=== PATIENT | female | born 1975 | race Two or more races ===

== ENCOUNTER 2018-08-05 05:31 | Day surgery (SDC) | payer OTHER ==
--- NOTE | 2018-08-04 00:17 | PREOPHP ---
DATE OF ADMISSION: 09/05/2018 HISTORY OF PRESENT ILLNESS: This is a 42-year-old female, 3, para 3. This patient was refer red to me in 02/2018 due to irregular periods, pelvic pain, and heavy periods with clots. This patie nt had a previous history of right salpingo-oophorectomy and left tubal coagulation of the tubes for tubal ligation. She has been having dyspareunia, dysmenorrhea as well, and she was diagnosed with th e possibility of a fibroid uterus. The patient was given treatment with antibiotics as well and Depo shot. The Depo shot has given her about 50% relief and she has still been having periods that are h eavy with clots and with hemorrhages that led her to anemia. She cannot tolerate oral contraceptives . She has used an IUD that was used in the past with no help. The uterus felt with early fibroid co nsistency and very painful mobilization and, for these reasons, she was given the possibility of PID. She was given treatment with antibiotics of Cipro and Flagyl. She did not get better and she has b een diagnosed with intractable pelvic pain, early fibroid uterus, intractable bleeding, previous righ t salpingo-oophorectomy PID versus endometriosis. At this time, she has been offered a pelviscopic a pproach to determine the etiology of her pain, if it is related to PID, adhesions, fibroids or endome triosis or both. She is advised for a laparoscopic procedure, possible lysis of adhesions. PAST MEDICAL HISTORY: Right salpingo-oophorectomy due to an ectopic and she had a pelvisco py with left tubal fulguration. REVIEW OF SYSTEMS: Negative for cardiovascular disease, negative for lung disease, GI disease, endoc rine disease and no medical antecedents. ALLERGIES: SHE HAS NO ALLERGIES. SOCIAL HISTORY: No history of drugs or alcohol. FAMILY HISTORY: Noncontributory. MEDICATIONS: She is not taking any medicine at this moment except for ibuprofen. PHYSICAL EXAMINATION: VITAL SIGNS: The patient is 4 feet 11 inches. She weighs 153 pounds. Blood pressure is 117/83, pul se is 80, respirations 16. HEAD AND NECK: Normal. CHEST: Clear. HEART: Normal sinus rhythm. LUNGS: Clear. BREASTS: Soft, nontender, no masses. ABDOMEN: Soft, nontender, no masses. PELVIC: With normal external genitalia. Normal vagina. Uterus retroverted, flexed, very painful on mobilization to both sides, mainly on the left and no masses were palpated. RECTAL: Normal. EXTREMITIES: Normal. DIAGNOSES: 1. Intractable pelvic pain and bleeding. 2. History of right salpingo-oophorectomy. 3. Pelvic inflammatory disease. 4. Endometriosis versus fibroid uterus. PLAN: She is undergoing a pelviscopy, possible lysis of adhesions to determine the diagnosis and to follow with treatment. She has been advised of the possible risks and possible complications of the procedure with her alternatives and options. Written information was provided. She had no more ques tions and agreed to go ahead with the procedure with full understanding and no more questions. Dictated By: SANJAY MELO/BRANDON Conf#: [id number] DID#: [id number]
[2018-08-05] VITALS (13 sets, daily range): BP systolic 102–134; BP diastolic 54–84; PULSE 66–110; RESP 11–38; Ht 149.9 cm; Wt 68.8 kg
[~2018-08-05] VITALS: Ht 149.9 cm; Wt 68.8 kg
[2018-08-05] MEDS ORDERED: BUPIVACAINE 0.5%/EPI (SDV) 30 ML INJ ONE (06:56)
[2018-08-05] MEDS ORDERED: DESFLURANE 15 MIN ONE (07:00)
[2018-08-05] MEDS ORDERED: CEFAZOLIN 2 GM/50 ML (PMX) 50 ML IVPB SCH (07:00)
--- NOTE | 2018-08-05 07:18 | PREAC ---
Date/Time of Note Date/Time of Note DATE: 08/05/18 TIME: 07:16 Anesthesia Eval and Record Evaluation Time Pre-Procedure Interview DATE: 08/05/18 TIME: 07:16 Age 42 Sex female NPO: 8 hrs Preoperative diagnosis PELVIC PAIN Planned procedure PELVIOSCOPY, LYSIS OF ADHESIONS Past Medical History Past Medical History: None Surgery & Anesthesia Issues No known issue (BTL) Meds Anticoagulation: No Beta Reid within 24 hr: No Reason Beta Reid not given: Pt. not on B-Reid No Active Prescriptions or Reported Meds Current Medications Cefazolin Sodium/ Dextrose 50 ml @ 100 mls/hr PRE-OP IVPB ; Start 08/05/18 at 07:00; Stop 08/05/18 at 12:00 Meds reviewed: Yes Allergies Coded Allergies: No Known Allergy (Unverified , 08/05/18) Allergies Reviewed: Yes Labs/Studies Labs Reviewed: Reviewed by anesthesiologist test: Negative Studies: ECG (NL), CXR (NAPD) Pre-procedure Exam Last vitals Vital Signs Date Temp Pulse Resp B/P (MAP) Pulse Ox O2 O2 Flow FiO2 Time Delivery Rate 08/05/18 97.2 78 18 113/68 98 Room Air 05:55 (83) Airway: Adequate mouth opening, Adequate thyromental dist Mallampati: Mallampati II Teeth: Normal Lung: Normal Heart: Normal ASA Physical Status ASA physical status: 1 Emergency: None Planned Anesthetic General/MAC: ETT Nerve block: TAP (bilateral) Planned Pain Management Single shot nerve block, Parenteral pain med Pre-operative Attestations Prior to commencing anesthesia and surgery, the patient was re-evaluated, there was verification of: *The patient's identity *The results of appropriate recent lab work and preoperative vital signs *The above evaluation not changing prior to induction *Anesthetic plan, risk benefits, alternative and complications discussed with patient/family; questions answered; patient/family understands, accepts and wishes to proceed. Zi Garay M.D. Aug 05, 2018 07:18
[2018-08-05] MEDS ORDERED: TRIMETHOBENZAMIDE 100 MG/ML VIAL IM PRN (07:30)
[2018-08-05] MEDS ORDERED: OXYCODONE/ACETAMINOPHEN (5/325) TAB PO PRN ×2 (07:30)
[2018-08-05] MEDS ORDERED: LABETALOL HCL 20MG INJ IV PRN (07:30)
[2018-08-05] MEDS ORDERED: ONDANSETRON 4 MG INJ IV PRN (07:30)
[2018-08-05] MEDS ORDERED: DIPHENHYDRAMINE 50 MG INJ IV PRN (07:30)
[2018-08-05] MEDS ORDERED: MEPERIDINE 25 MG INJ IV PRN (07:30)
[2018-08-05] MEDS ORDERED: hydrALAzine 20 MG INJ IV PRN (07:30)
[2018-08-05] MEDS ORDERED: FENTAnyl 50 MCG/ML VIAL IV PRN ×3 (07:30)
[2018-08-05] MEDS ORDERED: MIDAZOLAM 1 MG/ML 2 ML INJ IV PRN (07:30)
[2018-08-05] MEDS ORDERED: ALBUTEROL 0.083% (NEB) 2.5 MG/3 ML AMP HHN PRN (07:30)
[2018-08-05] MEDS ORDERED: EPHEDrine SULFATE 50 MG/5 ML SYG IV PRN (07:30)
[2018-08-05] MEDS ORDERED: HYDROmorphONE 1 MG/5 ML IV SYRINGE IV PRN ×2 (07:30)
[2018-08-05] MEDS ORDERED: IPRATROPIUM (NEB) 0.5 MG/2.5 ML AMP HHN PRN (07:30)
[2018-08-05] MEDS ORDERED: NEOSTIGMINE 3 MG/3 ML SYRINGE ONE (07:41)
[2018-08-05] MEDS ORDERED: FENTAnyl 50 MCG/ML VIAL ONE (07:41)
[2018-08-05] MEDS ORDERED: ROCURONIUM 50 MG INJ ONE (07:41)
[2018-08-05] MEDS ORDERED: CEFAZOLIN 1 GM INJ ONE (07:41)
[2018-08-05] MEDS ORDERED: MIDAZOLAM 1 MG/ML 2 ML INJ ONE (07:41)
[2018-08-05] MEDS ORDERED: GLYCOPYRROLATE 0.4 MG INJ ONE (07:41)
[2018-08-05] MEDS ORDERED: PROPOFOL 20 ML ONE (07:41)
[2018-08-05] MEDS ORDERED: HYDROmorphONE 2 MG/ML SYG ONE (07:42)
[2018-08-05] MEDS ORDERED: ONDANSETRON 4 MG INJ ONE (07:42)
[2018-08-05] MEDS ORDERED: DEXAMETHASONE 4 MG/ML 5 ML INJ ONE (07:44)
--- NOTE | 2018-08-05 07:53 | HPN ---
Date/Time of Note Date/Time of Note DATE: 08/05/18 TIME: 07:53 Interval H&P Admission Note Pt. seen H&P reviewed: No system changes SANJAY MORSE MD Aug 05, 2018 07:53
--- NOTE | 2018-08-05 07:56 | QN ---
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
[2018-08-05] MEDS ORDERED: ROPIVACAINE 0.5 % 30 ML VIAL ONE (08:01)
[2018-08-05] MEDS ORDERED: KETOROLAC 30 MG INJ ONE (08:59)
--- NOTE | 2018-08-05 09:09 | PD.PPDC ---
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 Condition [id number] Patient Condition: [id number] Good Diet Eirqe1Wl Diet: Erwvu7b Resume Regular Diet Activity/Restrictions [id number] Activity: Syjfj6r Normal Activity May Shower Ycyma1Ar Restrictions: Vekjc8d No Exercising No Lifting No Driving No Sexual Activity Nothing in the Vagina No Grand Detour No Tampons, douche Follow-up Follow-up with Physician: 2, Week/Weeks Return to clinic for [id number] CLIENT ADVOCATE Instructions: Mtoop2z Fever greater than 101 Chills Worsening abdominal pain Excessive Vaginal Bleeding More than 2 pads per hour Unable to tolerate diet Vgevr3Iq Surgical Instructions: Cmzhf6i Incisional Drainage Incisional Redness SANJAY MORSE MD Aug 05, 2018 09:09
--- NOTE | 2018-08-05 09:13 | PAC ---
Date/Time of Note Date/Time of Note DATE: 08/05/18 TIME: 09:13 Post-Anesthesia Notes Post-Anesthesia Note Last documented vital signs Vital Signs Date Temp Pulse Resp B/P (MAP) Pulse Ox O2 O2 Flow FiO2 Time Delivery Rate 08/05/18 97.2 78 18 113/68 98 Room Air 09:13 (83) Activity: WNL Respiratory function: WNL Cardiovascular function: WNL Mental status: Baseline Pain reasonably controlled: Yes Hydration appropriate: Yes Nausea/Vomiting absent: Yes Zi Garay M.D. Aug 05, 2018 09:13
[2018-08-05] MEDS: HYDROmorphONE 1 MG/5 ML IV SYRINGE IV PRN ×2 (09:28→09:38)
--- NOTE | 2018-08-05 12:27 | OPR ---
DATE OF OPERATION: 08/05/2018 PROCEDURE: Pelviscopy. PREOPERATIVE DIAGNOSES: 1. Intractable pelvic pain and bleeding. 2. History of absent right adnexa. 3. Endometriosis versus fibroid uterus or pelvic inflammatory disease, possible adhesions. POSTOPERATIVE DIAGNOSES: 1. Fibroid uterus. 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 3. Previous left tubal fulguration, fibroid uterus and right uterine horn. No signs of pelvic infla mmatory disease. SURGEON: Sanjay Marques MD ANESTHESIA: General. ANESTHESIOLOGIST: Zi Garay MD DESCRIPTION OF PROCEDURE: The patient was given general anesthesia and an abdominal block, placed in the supine position. She was placed in the lithotomy position as well. The Roman catheter had been placed in the bladder. The abdomen was prepped and draped. The uterine manipulator was placed insi de the uterus. The patient seems to be in on her period. The small incision was made over the infer ior edge of the umbilicus. The fascia was incised and held with an 0 Vicryl. The peritoneum was ent ered bluntly and the Nikolas was inserted and the CO2 was inflated. The second trocar and cannula was inserted suprapubically over the midline. Visualization of the pelvic organs revealed that there wa s a uterus that appears to have fibroids with an absent left tube from previous surgery, a remnant fi mbria only then left ovary was normal. The uterus appears very hypertrophic with possibility of fibr oids. The right adnexa was with a congenital absence of the right ovary. The right round ligament w as involved with possible small uterine horn. There were no signs of endometriosis or adhesions. Th e procedure was finished after visualization of these organs by looking at the liver area that appear s very fatty as a fatty liver. The patient tolerated the procedure well and removed all the instrume nts. The gas was deflated of the abdomen. Then the incision was closed on the umbilical area with a n 0 Vicryl and 3-0 Monocryl to the skin to both incisions. The patient left the OR awake and stable. Sponge counts and instrument counts were correct. Intravenous antibiotics were given for prophylax is. Dictated By: SANJAY MELO/NTS Conf#: [id number] DID#: [id number]
--- NOTE | 2018-08-05 12:38 | OPR ---
DATE OF OPERATION: 08/05/2018 PROCEDURE: PELVISCOPY. PREOPERATIVE DIAGNOSES: 1. Intractable pelvic pain and bleeding. 2. History of absent right adnexa. 3. Endometriosis versus PID fibroid uterus. POSTOPERATIVE DIAGNOSES: 1. Fibroid uterus. 2. Right absent adnexa with a right uterine horn. 3. Left previous tubal fulguration with remnant fimbria, normal left ovary, fibroid uterus. SURGEON: Sanjay Marques MD ANESTHESIA: Dr. Garay with general. COMPLICATIONS: None. DESCRIPTION OF PROCEDURE: The patient was given general anesthesia, placed in the lithotomy position . The perineal and vaginal area were prepped and draped. A Roman catheter was placed in the bladder . A HUMI was inserted in the uterus for manipulation of the uterus and a small incision was made gerardo und the inferior edge of the umbilicus. The incision was made of the fascia and 2 stitches with 0 Vi cryl were placed on either side of the fascia. The peritoneum was entered bluntly. The Nikolas was i nserted, the CO2 was inflated. A second trocar and cannula was placed suprapubically over the midlin e. The visualization of the pelvic organs revealed that the uterus had an absent right adnexal area as congenitally the round ligament on the right side was connected to a small mass apparently a uteri ne horn that followed to the inguinal canal. The uterus itself appears to have like a fibroid consis tency, bulky and hypertrophic. The left ovary was normal. There was a left tubal stump up to the co rneal end with no pieces of any tube left, and there was a very small amount of fimbria at the other end of the ovary that was from signs of previous tubal ligation. The peritoneal area did not show an y endometriosis implants nor signs of pelvic infection or adhesions. The uterus appears to have just a fibroid. The visualization of the liver showed fatty liver. The procedure was now finished by re moving all the gas. The gas was deflated from the abdomen, removing all the instruments and the umbi lical incision was closed with 0 Vicryl for the fascia, and 3-0 Monocryl for both incisions. The pat ient tolerated the procedure well and left the OR awake and stable. Sponge counts and instrument cou nts were correct. Intravenous antibiotics were given for prophylaxis. Blood loss was minimal. The urine was clear at the end of the procedure. Dictated By: SANJAY MELO/BRANDON Conf#: [id number] DID#: [id number]
--- NOTE | 2018-08-05 19:50 | RADRPT ---
Vent Rate: 68 bpm RR Interval: 0 msec HI Interval: 106 msec QRS Duration: 80 msec QT Interval: 406 msec QTC Interval: 431 msec P-R-T [place]: 42 - 40 - 52 degrees Sinus rhythm with short HI Low voltage QRS Cannot rule out Anterior infarct , age undetermined Abnormal ECG Electronically Signed By: Anibal Iraheta [id number]
== END 2018-08-05 10:44 | disposition home or self-care (01) ==
LOC: SDS 05:31
PROVIDERS: ATTEND Obstetrics & Gynecology
DX: D25.9 Leiomyoma of uterus, unspecified (principal)
CPT/HCPCS: 49320; 93005; J0690; J1100; J1170; J1885; J2250; J2405; J2710; J2795; J3010; Z7512; Z7610

== ENCOUNTER 2019-01-06 05:10 | Inpatient (IN) | payer OTHER ==
--- NOTE | 2019-01-03 11:29 | PREOPHP ---
DATE OF ADMISSION: 01/06/2019 SURGICAL PROCEDURE 01/06/2019. HISTORY OF PRESENT ILLNESS: This is a 43-year-old female 3, para 3 with a history of a tubal ligation and pelviscopic RSO. The patient has seen me due to loss of urine with Valsalva maneuver, during sex, during lifting, laughing, coughing or any Valsalva maneuver. The patient also has urgency with accidents before reaching the bathroom. The patient also has a history of periods that are very heavy with clots with the diagnosis of an early fibroid. She was advised for a hysteroscopic D and C using possibly the HTA machine and A&P repair, sling and a graft. The patient also complains of constipation and she had been diagnosed with a cystourethrocele, grade 3-4, and a rectocele 2-3 and menorrhagia and early fibroid uterus. PAST MEDICAL HISTORY AND REVIEW OF SYSTEMS: Tubal ligation, previous right salpingo-oophorectomy due to an ectopic . The patient had 2 previous surgeries as pelviscopy, right salpingo-oophorectomy and an ectopic and also a pelviscopic tubal ligation. The review of systems was negative for cardiovascular disease, negative for lung disease, GI disease, endocrine disease and hematological or orthopedic disease and she has no medical antecedents. ALLERGIES: She has no allergies. SOCIAL HISTORY: No history of drugs or alcohol. No history of smoking. FAMILY HISTORY: Noncontributory. MEDICATIONS: She is only using ibuprofen. PHYSICAL EXAMINATION: VITAL SIGNS: The patient's vital signs are stable. Blood pressure is 116/76. She weighs 155, she is 4 feet 11 inches. HEAD AND NECK: Normal. CHEST: Clear. HEART: Normal sinus rhythm. LUNGS: Clear. BREASTS: Soft, nontender, no masses. ABDOMEN: Soft, nontender, no masses. GENITALIA: With a cystourethrocele, grade III. Uterus that is hypertrophic, non-prolapsed and a grade III-IV rectocele as well. The extremities are normal. The adnexa were nonpalpable. RECTAL: Negative. EXTREMITIES: With normal pulses and no edema. DIAGNOSES: 1. Early fibroid uterus. 2. Menorrhagia. 3. 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 4. 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 PLAN: She is undergoing an A&P repair with a sling, graft and a hysteroscopic D and C with HTA. She has been advised of the possible risks and possible complications of the procedure with her alternatives and options. Written information was provided. She had no more questions and agreed to go ahead with the procedure with full understanding and no more questions. Dictated By: SANJAY MELO/BRANDON Conf#: [id number] DID#: [id number] MTDD
[2019-01-06] VITALS (28 sets, daily range): BP systolic 93–128; BP diastolic 50–76; PULSE 52–84; RESP 11–21; Ht 149.9 cm; Wt 67.2 kg
[~2019-01-06] VITALS: Ht 149.9 cm; Wt 67.2 kg
[2019-01-06] MEDS ORDERED: BUPIVACAINE 0.25%/EPI (SDV) 30 ML INJ ONE (06:57)
[2019-01-06] MEDS ORDERED: SEVOFLURANE 15 MIN ONE (07:00)
[2019-01-06] MEDS: LACTATED RINGER'S 1,000 ML IV SCH ×5 (07:16→20:49)
--- NOTE | 2019-01-06 07:18 | PREAC ---
Date/Time of Note Date/Time of Note DATE: 01/06/19 TIME: 07:16 Anesthesia Eval and Record Evaluation Time Pre-Procedure Interview DATE: 01/06/19 TIME: 07:16 Age 43 Sex female NPO: 8 hrs Preoperative diagnosis Uterine fibroid, menorrhagia, cystourethrocele, rectocele Planned procedure D & C, hysteroscopy, AP repair with obtryx sling and acell xenform graft, hydrothermal ablation Past Medical History Past Medical History: None Surgery & Anesthesia Issues No known issue Meds Anticoagulation: No Beta Reid within 24 hr: No Reason Beta Reid not given: Pt. not on B-Reid No Active Prescriptions or Reported Meds Current Medications Lactated Ringer's 1,000 ml @ 125 mls/hr Q8H IV ; Start 01/06/19 at 07:30 Meds reviewed: Yes Allergies Coded Allergies: No Known Allergy (Unverified , 01/06/19) Allergies Reviewed: Yes Labs/Studies Labs Reviewed: Reviewed by anesthesiologist test: Negative Pre-procedure Exam Last vitals Vital Signs Date Temp Pulse Resp B/P (MAP) Pulse Ox O2 O2 Flow FiO2 Time Delivery Rate 01/06/19 97.4 69 17 115/67 97 Room Air 06:57 (83) Airway: Adequate mouth opening Mallampati: Mallampati I Teeth: Normal Lung: Normal Heart: Normal ASA Physical Status ASA physical status: 1 Emergency: None Planned Anesthetic General/MAC: LMA Pre-operative Attestations Prior to commencing anesthesia and surgery, the patient was re-evaluated, there was verification of: *The patient's identity *The results of appropriate recent lab work and preoperative vital signs *The above evaluation not changing prior to induction *Anesthetic plan, risk benefits, alternative and complications discussed with patient/family; questions answered; patient/family understands, accepts and wishes to proceed. VICKEY PARISH MD Jan 06, 2019 07:18
--- NOTE | 2019-01-06 07:29 | HPN ---
Date/Time of Note Date/Time of Note DATE: 01/06/19 TIME: 07:29 Interval H&P Admission Note Pt. seen H&P reviewed: No system changes SANJAY MORSE MD Jan 06, 2019 07:29
[2019-01-06] MEDS ORDERED: PROPOFOL 20 ML ONE (07:31)
[2019-01-06] MEDS ORDERED: MEPERIDINE 100 MG INJ ONE (07:31)
[2019-01-06] MEDS ORDERED: ONDANSETRON 4 MG INJ ONE (07:31)
[2019-01-06] MEDS ORDERED: LIDOCAINE 2% (SDV) 5 ML INJ ONE (07:31)
[2019-01-06] MEDS ORDERED: CEFAZOLIN 1 GM INJ ONE (07:31)
[2019-01-06] MEDS ORDERED: METOCLOPRAMIDE 10 MG INJ ONE (07:32)
[2019-01-06] MEDS ORDERED: EPHEDrine 25 MG/5 ML SYG ONE (08:11)
[2019-01-06] MEDS ORDERED: POLYMYXIN/BACITRACIN 1L IRRIG IRR ONE (09:05)
--- NOTE | 2019-01-06 10:21 | SIPON ---
Date/Time of Note Date/Time of Note DATE: 01/06/19 TIME: 10:19 Operative Report Preoperative Diagnosis Early fibroid uterus Menorrhagia Cystourethrocele grade 3-4 with mixed incontinence Rectocele grade 2-3 with constipation Postoperative Diagnosis Same Operation/Procedure Performed Fractional D&C hysteroscopy and hydrothermal ablation. 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
[2019-01-06] MEDS ORDERED: HYDROCODONE/APAP (5/325) TAB PO PRN ×2 (10:30)
[2019-01-06] MEDS ORDERED: ZOLPIDEM 5 MG TAB PO PRN (10:30)
[2019-01-06] MEDS ORDERED: ONDANSETRON INJ 6 MG in DEXTROSE 5% 50 ML IVPB PRN (10:30)
[2019-01-06] MEDS ORDERED: DIPHENHYDRAMINE 50 MG CAP PO PRN (10:30)
[2019-01-06] MEDS: KETOROLAC 30 MG INJ IV SCH ×3 (10:44→22:16)
[2019-01-06] MEDS: HYDROmorphONE 1 MG/5 ML IV SYRINGE IV PRN ×2 (10:56→11:03)
[2019-01-06] MEDS ORDERED: HYDROmorphONE 1 MG/5 ML IV SYRINGE IV PRN ×5 (11:00)
[2019-01-06] MEDS ORDERED: FENTAnyl 50 MCG/ML VIAL IV PRN ×6 (11:00)
[2019-01-06] MEDS ORDERED: ONDANSETRON 4 MG INJ IV PRN ×2 (11:00)
[2019-01-06] MEDS ORDERED: METOCLOPRAMIDE 10 MG INJ IV PRN (11:00)
[2019-01-06] MEDS ORDERED: OXYCODONE/ACETAMINOPHEN (5/325) TAB PO PRN ×2 (11:00)
[2019-01-06] MEDS ORDERED: MEPERIDINE 25 MG INJ IV PRN (11:00)
[2019-01-06] MEDS ORDERED: MIDAZOLAM 1 MG/ML 2 ML INJ IV PRN (11:00)
[2019-01-06] MEDS ORDERED: EPHEDrine 25 MG/5 ML SYG IV PRN (11:00)
[2019-01-06] MEDS ORDERED: hydrALAzine 20 MG INJ IV PRN (11:00)
[2019-01-06] MEDS ORDERED: DIPHENHYDRAMINE 50 MG INJ IV PRN (11:00)
[2019-01-06] MEDS ORDERED: ALBUMIN HUMAN 5% 250 ML IV PRN (11:00)
[2019-01-06] MEDS ORDERED: LABETALOL HCL 20MG INJ IV PRN (11:00)
--- NOTE | 2019-01-06 11:05 | PAC ---
Date/Time of Note Date/Time of Note DATE: 01/06/19 TIME: 11:05 Post-Anesthesia Notes Post-Anesthesia Note Last documented vital signs Vital Signs Date Temp Pulse Resp B/P (MAP) Pulse Ox O2 O2 Flow FiO2 Time Delivery Rate 01/06/19 66 17 128/61 97 Room Air 10:58 (83) 01/06/19 98.5 10:18 Activity: WNL Respiratory function: WNL Cardiovascular function: WNL Mental status: Baseline Pain reasonably controlled: Yes Hydration appropriate: Yes Nausea/Vomiting absent: Yes Comments BT: 98.6 VICKEY PARISH MD Jan 06, 2019 11:05
--- NOTE | 2019-01-06 11:17 | OPR ---
DATE OF OPERATION: 01/06/2019 PROCEDURE: Fractional D and C, hysteroscopy and hydrothermal ablation, anterior and posterior repair , Obtryx sling, ACell graft. SURGEON: Sanjay Marques MD ANESTHESIOLOGIST: Dr. Madrigal. ANESTHESIA: General anesthesia. DESCRIPTION OF PROCEDURE: The patient was given general anesthesia, placed in the lithotomy position . The abdominoperineal and vaginal area were prepped and draped and a Roman catheter was placed in t he bladder. Examination under anesthesia revealed that the uterus was with prolapse grade II and it was retroverted with a fibroid. Adnexa were nonpalpable. The vaginal speculum was applied. The cer vix was held with a forceps. Endocervical curettage was done. The uterus was sounded to a depth of 8 cm and dilated to a #7 Hegar. The hysteroscope was placed and a before that, a sampling of the end ometrium was done with a curettage of the anterior wall, posterior wall, lateral wall and fundus. Ve ry scanty tissue was obtained. The cavity appears to be smooth with no fibroids and no polyps. At t his time, the hysteroscope was done with no visualization of any masses. The hydrothermal ablation w as proceeded with the media at 90 degrees Celsius for 10 minutes, then circulated with a good seal an d after 10 minutes recorded down and was removed the tubes and we got some pictures of the endometria l lining that was already cauterized. At this time, we started the anterior and posterior repair by making a midline incision 2 cm below the urethral meatus all the way to the cervix. The injection wi th Marcaine solution with Xylocaine was done in between the vaginal mucosa and anterior vaginal wall. The cystocele was from the anterior vaginal mucosa, and the dissection was done further t o the obturator internal muscles in both sides. The bladder was tacked in with interrupted sutures a nd pursestring suture with 2-0 Vicryl. At this point, the level for the Obtryx sling was localized a nd marked with a pen 2 cm below the adductor longus tendon parallel to the clitoris. An incision was made with a knife and the obturator needle perforating the membrane was passed from the skin area th rough the obturator membrane and was retrieved paraurethrally where the sling was attached to the nee dle and the needles were retrieved back and at this time, the arms of the sling were passed through t he obturator canal. A piece of ACell was cut and left on the bladder first and then the sling was at tached to it and placed over the ACell graft which is a porcine bladder. The Surgicel was placed in both corners for control of venous bleeding and on the other side of the sling, the other piece of AC ell was applied and then the vagina wall was closed vertically with interrupted sutures with 2-0 Vicr yl. At the level of the entrance of the needle, the sling was trimmed and the incision was closed wi th Dermabond. At this point, a cystoscopy was done which cleared the fact that there was no injury to the bladder o r ureters. The posterior colporrhaphy was started by making a triangular incision at the perineum. The injection of Xylocaine and epinephrine was given all the way up to about 5 cm up the vaginal augustus l. The separation of the posterior vaginal mucosa was done from the rectocele and the rectocele was plicated with 2-0 Vicryl. The excess of vaginal mucosa was trimmed and the vaginal mucosa was closed with interrupted sutures vaginally with 2-0 Vicryl suture. At the perineal area, the levator ani we re tacked from one side to the other side with a #1 Vicryl and the levators lifted the perineum. Sonya sure was done for the superficial layer with a 2-0 Vicryl and 3-0 Vicryl. The patient tolerated the procedure well at this time. The Roman was placed back in and Xeroform gauze was placed in the vagin a and the patient tolerated the procedure well and left the OR awake and stable. Sponge counts and i nstrument counts were correct. Intravenous antibiotics were given for prophylaxis. Blood loss was m inimal, 10 mL or less and the urine was clear at the end of the procedure. Dictated By: SANJAY MELO/BRANDON Conf#: [id number] DID#: [id number]
[2019-01-06] MEDS: METOCLOPRAMIDE 10 MG TAB PO SCH ×2 (12:16→17:22)
[2019-01-06] MEDS: CEFAZOLIN 1 GM/50 ML (PMX) 50 ML IVPB SCH ×2 (13:31→22:15)
--- NOTE | 2019-01-06 14:47 | RADRPT ---
Vent Rate: 64 bpm RR Interval: 936 msec [place] Interval: 104 msec QRS Duration: 85 msec QT Interval: 414 msec QTC Interval: 428 msec P-R-T [place]: 30 - 29 - 39 degrees Sinus rhythm...normal P axis, V-rate 50- 99 Low voltage, precordial leads...precordial leads <1.0mV Electronically Signed By: Neeraj Blue
[2019-01-07] MEDS: METOCLOPRAMIDE 10 MG TAB PO SCH ×3 (00:41→12:59)
[2019-01-07] MEDS: LACTATED RINGER'S 1,000 ML IV SCH ×2 (02:12→05:16)
[2019-01-07] MEDS: CEFAZOLIN 1 GM/50 ML (PMX) 50 ML IVPB SCH (05:16)
[2019-01-07] MEDS: KETOROLAC 30 MG INJ IV SCH ×3 (05:16→16:39)
[2019-01-07 08:02] VITALS: BP 100/52; PULSE 61; RESP 18
--- NOTE | 2019-01-07 10:14 | PN ---
Date/Time of Note Date/Time of Note DATE: 01/07/19 TIME: 10:12 Assessment/Plan Lines/Catheters IV Catheter Type (from Nrsg): Peripheral IV Roman in Place (from Nrsg): Yes Subjective 24 Hr Interval Summary Day 1 post A&P repair and sling. Afebrile, mobile, up to the bathroom Patient explained about surgical findings and procedure. Tolerating diet. Constitutional: no complaints Feeding: advancing diet Pain Control: mild Detailed Summary Eyes: no complaints ENT: no complaints Respiratory: no complaints Cardiovascular: no complaints Gastrointestinal: no complaints Genitourinary: no complaints Musculoskeletal: no complaints Skin: no complaints Neurologic: no complaints Endocrine: no complaints Lymphatic: no complaints Psychological: no complaints, nl mood/affect Immunologic: no complaints Exam/Review of Systems Vital Signs Vitals Vital Signs Date Temp Pulse Resp B/P (MAP) Pulse Ox O2 O2 Flow FiO2 Time Delivery Rate 01/07/19 98.9 61 18 100/52 98 08:02 (68) 01/06/19 Room Air 11:53 Intake and Output 01/06/19 01/06/19 01/07/19 1515:00 23:00 07:00 IntakeIntake Total 1500 ml 1650 ml 1250 ml OutputOutput Total 1260 ml 1650 ml 1550 ml BalanceBalance 240 ml 0 ml -300 ml Exam Constitutional: alert, oriented, well developed Psych: no complaints, nl mood/affect Head: normocephalic, atraumatic Eyes: nl conjunctiva, EOMI, nl lids, nl sclera ENMT: nl external ears & nose, nl lips & teeth, nl nasal mucosa & septum, mucosa pink and moist Neck: supple, non-tender Respiratory: clear to auscultation, normal air movement Cardiovascular: regular rate and rhythm, nl pulses Gastrointestinal: soft, nl liver, spleen, non-tender Musculoskeletal: nl extremities to inspection, nl gait and stance Extremities: normal pulses Neurological: [employer] II-XII intact, nl mental status, nl speech, nl strength Skin: nl turgor, rash or lesions Lymph: nl lymph nodes Results Result Diagram: 01/07/19 0436 01/07/19 0436 SANJAY MORSE MD Jan 07, 2019 10:14
[2019-01-07 15:02] VITALS: BP 106/58; PULSE 65; RESP 18
--- NOTE | 2019-01-14 22:49 | DS ---
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 She was found to have fibroid uterus and pelvic prolapse. She was offered an HTA ablation of the uterus to stop the excessive bleeding and anterior and posterior colporrhaphy and sling. Hospital Course The patient had the procedure without complications and postoperatively she was kept one night to be able to see her bladder will work without a Roman catheter and also because of the packing that was left in the vagina to control hemostasis. She did very good the next day and she was afebrile, tolerating diet and with pain controlled. There was no active bleeding The patient was discharged stable and in good conditions with further instructions of what to do and not to do at home and to see me in the office in a week. Pain medication was provided Home Meds Active Scripts Cephalexin* (Keflex*) 500 Mg Capsule, 500 MG PO QID for 5 Days, CAP Prov:MEENAKSHI LARA MD 01/11/19 Primary Care Provider Not On Staff Doctor Time spent on discharge: < 30 minutes SANJAY MORSE MD Jan 14, 2019 22:49
== END 2019-01-07 17:35 | disposition home or self-care (01) | DRG 743 ==
LOC: REC 05:10 → EDSTATUS 07:30 → MS1 11:27
PROVIDERS: ADMIT Obstetrics & Gynecology; ATTEND Obstetrics & Gynecology
PROC: 0JUC3JZ Supplement of Pelvic Region Subcutaneous Tissue and Fascia with Synthetic Substitute, Percutaneous Approach (ICD-10-PCS; 2019-01-06)
PROC: 0JUC3KZ Supplement of Pelvic Region Subcutaneous Tissue and Fascia with Nonautologous Tissue Substitute, Percutaneous Approach (ICD-10-PCS; 2019-01-06)
PROC: 0UU Female Reproductive System, Supplement (ICD-10-PCS; 2019-01-06)
PROC: 0UDB8ZZ Extraction of Endometrium, Via Natural or Artificial Opening Endoscopic (ICD-10-PCS; principal; 2019-01-06 07:30)
PROC: 0U598ZZ Destruction of Uterus, Via Natural or Artificial Opening Endoscopic (ICD-10-PCS; 2019-01-06 07:30)
DX: N81.4 Uterovaginal prolapse, unspecified (principal); N92.0 Excessive and frequent menstruation with regular cycle; D25.9 Leiomyoma of uterus, unspecified; K59.00 Constipation, unspecified; N39.46 Mixed incontinence
CPT/HCPCS: 80051; 81001; 82565; 84520; 85025; 87086; 88305; 93005; C1771; J0690; J1885; J2175; J2405; J2765; J7120; Q4166

== ENCOUNTER 2019-01-11 15:26 | Emergency (ER) | payer OTHER ==
[~2019-01-11] VITALS: Ht 149.9 cm; Wt 67.0 kg
[2019-01-11 15:46] VITALS: Ht 149.9 cm; Wt 67.0 kg
[2019-01-11] MEDS ORDERED: HYDROCODONE/APAP (5/325) TAB PO ONE (17:00)
--- NOTE | 2019-01-11 17:18 | ERD ---
ER Documentation Chief Complaint Chief Complaint bloody discharge, discomfort, had uterine fibroid Sx 5 days ago HPI 43-year-old female status post pelvic surgery done by 5 days ago is presenting with bloody discharge that started last night with pelvic pain and subjective fevers. She denies any purulent discharge. She is feeling pain mostly on the left side of her pelvis. She did have a sling placed and had ablation of a fibroid. No nausea or vomiting. The pain is cramping, 7 out of 10, nonradiating. No alleviating or exacerbating factors. ROS All systems reviewed and are negative except as per history of present illness. Medications Home Meds Active Scripts Cephalexin* (Keflex*) 500 Mg Capsule, 500 MG PO QID for 5 Days, CAP Prov:MEENAKSHI LARA MD 01/11/19 Allergies Allergies: Coded Allergies: No Known Allergy (Unverified , 01/11/19) PMhx/Soc History of Surgery: Yes (tubal ligation, right salpho-oopherectomy. Fibroid ablation. Bladder sling.) Anesthesia Reaction: No Hx Neurological Disorder: No Hx Respiratory Disorders: No Hx Cardiac Disorders: No Hx Psychiatric Problems: No Hx Miscellaneous Medical Probl: No Hx Alcohol Use: No Hx Substance Use: No Hx Tobacco Use: No Smoking Status: Never smoker FmHx Family History: No diabetes Physical Exam Vitals Vital Signs Date Temp Pulse Resp B/P (MAP) Pulse Ox O2 O2 Flow FiO2 Time Delivery Rate 01/11/19 98.1 64 18 120/49 99 Room Air 18:34 (72) 01/11/19 83 16 106/75 100 Room Air 17:42 (85) 01/11/19 98.7 75 18 125/68 98 15:46 (87) Physical Exam Const: No acute distress, well-appearing, nontoxic Head: Atraumatic Eyes: Normal Conjunctiva ENT: Normal External Ears, Nose and Mouth. Neck: Full range of motion. No meningismus. Resp: Clear to auscultation bilaterally Cardio: Regular rate and rhythm, no murmurs Abd: Soft, mild left lower quadrant tenderness with no rebound or guarding. No masses., non distended. Normal bowel sounds : External vagina normal. There is blood-tinged and brownish fluid in the vaginal vault. No purulent drainage. Skin: No petechiae or rashes Back: No midline or flank tenderness Ext: No cyanosis, or edema Neur: Awake and alert Psych: Normal Mood and Affect Result Diagram: 01/11/19 1714 01/11/19 1714 Results 24 hrs Laboratory Tests Test 01/11/19 17:14 01/11/19 17:19 01/11/19 17:20 01/11/19 17:24 White Blood Count 11.6 10^3/ul Red Blood Count 4.20 10^6/ul Hemoglobin 12.7 g/dl Hematocrit 37.7 % Mean Corpuscular 89.8 fl Volume Mean Corpuscular 30.2 pg Hemoglobin Mean Corpuscular 33.7 g/dl Hemoglobin Concen t Red Cell 12.6 % Distribution Width Platelet Count 319 10^3/UL Mean Platelet 10.7 fl Volume Immature 0.300 % Granulocytes % Neutrophils % 80.1 % Lymphocytes % 10.1 % Monocytes % 6.5 % Eosinophils % 2.5 % Basophils % 0.5 % Nucleated Red 0.0 /100WBC Blood Cells % Immature 0.040 10^3/ul Granulocytes # Neutrophils # 9.3 10^3/ul Lymphocytes # 1.2 10^3/ul Monocytes # 0.8 10^3/ul Eosinophils # 0.3 10^3/ul Basophils # 0.1 10^3/ul Nucleated Red 0.0 10^3/ul Blood Cells # Sodium Level 139 mmol/L Potassium Level 3.6 mmol/L Chloride Level 103 mmol/L Carbon Dioxide 26 mmol/L Level Anion Gap 10 Blood Urea 15 mg/dl Nitrogen Creatinine 0.76 mg/dl Est Glomerular > 60 mL/min Filtrat Rate mL/min Glucose Level 85 mg/dl Calcium Level 8.8 mg/dl Bedside Urine pH 5.5 (LAB) Bedside Urine 1+ Protein (LAB) Bedside Urine Negative Glucose (UA) Bedside Urine 1+ Ketones (LAB) Bedside Urine 2+ Blood Bedside Urine Negative Nitrite (LAB) Bedside Urine Negative Leukocyte Esteras e (L Urine Color ZIYAD Urine Clarity SLIGHTLY CLOUDY Urine pH 5.0 Urine Specific 1.028 Crucible Urine Ketones TRACE mg/dL Urine Nitrite NEGATIVE mg/dL Urine Bilirubin NEGATIVE mg/dL Urine 1+ mg/dL Urobilinogen Urine Leukocyte NEGATIVE [place]arcus/ul Esterase Urine Microscopic 5 /HPF RBC Urine Microscopic 4 /HPF WBC Urine Squamous FEW /HPF Epithelial Cells Urine Bacteria FEW /HPF Urine Mucus MANY /HPF Urine Hemoglobin 2+ mg/dL Urine Glucose NEGATIVE mg/dL Urine Total 1+ mg/dl Protein POC Beta HCG, NEGATIVE Qualitative Current Medications Medications Dose Sig/Ej Start Time Status Last (Trade) Ordered Route PRN Stop Time Admin Dose Reason Admin 1 tab ONCE ONCE 01/11/19 DC 01/11/19 Acetaminophen PO 17:00 16:41 / 01/11/19 17:01 Hydrocodone Bitart ([place] (5/325)) Procedures/MDM EMERGENT LABS AND DIAGNOSTIC STUDIES: Lab Results above were reviewed and interpreted by me. CBC: no anemia or evidence of infection BMP: No e/o clinically significant electrolyte abnormality severe acidosis, alkalosis, renal failure, diabetic ketoacidosis UA: no evidence of infection Initial Nursing notes reviewed. Previous Medical Records requested via the Electronic Health Record. EMERGENCY DEPARTMENT COURSE / MEDICAL DECISION MAKING: Patient is presenting with pelvic pain and subjective fevers. Here she does not have a fever and does not have signs of sepsis. Vaginal exam did not show any evidence of bacterial pelvic infection. There is no evidence of yeast on wet mount. I discussed her case with her surgeon. She would like me to prescribe Keflex in case there is a infection developing. I discussed this plan with the patient. She is amenable. She has follow-up on with her doctor. Return precautions were discussed. Patient's blood pressure was elevated (>120/80) but appears stable without evidence of hypertensive emergency or urgency. The patient was counseled about the risks of hypertension and urged to pursue outpatient monitoring and therapy within a week with their primary care physician. Departure Diagnosis: Primary Impression: Pelvic pain Additional Impressions: Postoperative pain Bloody vaginal discharge Condition: Stable EKMEENAKSHI LAFLEUR MD Jan 11, 2019 17:18
[2019-01-11] MEDS ORDERED: CEPH-443 PO (19:11)
[2019-01-11 19:40] VITALS: BP 118/60; PULSE 68; RESP 18
== END 2019-01-11 19:45 | disposition home or self-care (01) ==
LOC: E/R 15:26
DX: R10.2 Pelvic and perineal pain (principal); G89.18 Other acute postprocedural pain; N93.9 Abnormal uterine and vaginal bleeding, unspecified
CPT/HCPCS: 80048; 81001; 81025; 85025; 87210; Z7502; Z7610; 81003; 99283